=== PATIENT | male | born 1960 | race Caucasian/White ===

== ENCOUNTER → 2019-02-25 15:22 | Outpatient (CLI) | payer OTHER, SELFPAY ==
--- NOTE | 2019-02-25 15:32 | MRI_ITS ---
STUDY: MRI LEFT ANKLE WITHOUT CONTRAST REASON FOR EXAM: Male, 58 years old. Left Achilles tendon pain for one year. TECHNIQUE: Standardized fat and water weighted pulse sequences were obtained in all 3 orthogonal planes. COMPARISON: None. FINDINGS: Normal subcutis adipose space. Mild posterior tibialis tendinosis with tenosynovitis (axial series 4 images 13-17). Normal flexor digitorum longus tendon. Normal flexor hallucis longus tendon. Peroneus brevis and longus tenosynovitis (axial series 4 images 14-18). Normal tibialis anterior tendon. Normal extensor hallucis longus tendon. Normal extensor digitorum longus tendons. Thickening of the distal Achilles tendon compatible with Achilles tendinosis (sagittal series 9 and 10 images 11-15). Pre-Achilles bursitis (sagittal series 10 image 11). Minimal thickening of the proximal plantar fascia with an inferior calcaneal spur (sagittal series 9 images 12-16). Normal plantar calcaneal tubercles. Normal intrinsic muscles of the rearfoot. Normal distal tibiofibular syndesmotic ligamentous complex. Normal lateral ligamentous complex. Cystic change or ganglion cyst in the sinus Tarsi compatible with sinus Tarsi syndrome (coronal series 8 images 18-22, sagittal series 10 images 11-16). Normal deltoid ligamentous complexes. Normal plantar calcaneonavicular (spring) ligament. Mild arthrosis of the tibiotalar joint with a small effusion (sagittal series 10 images 7-12). Normal talar dome. Mild arthrosis of the subtalar joint with a joint effusion (sagittal series 10 images 9-14). 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 Normal calcaneocuboid articulation. Normal navicular-cuneiform articulations. MRI/Lower Ext Joint Only (Routine) IMPRESSION: Mild posterior tibialis tendinosis with tenosynovitis. Peroneus brevis and longus tenosynovitis. Distal Achilles tendinosis. Pre-Achilles bursitis. Thickening of the proximal plantar fascia and inferior calcaneal spur. 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 Mild arthrosis of the subtalar joint with a joint effusion. 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 Electronically Signed: Dwayne Castro MD at 17:32 EST , Service support ,
== END ==
PROVIDERS: Referring Provider Podiatrist; Visit Provider Podiatrist
DX: M76.62 Achilles tendinitis, left leg (principal)
CPT/HCPCS: 73721